=== PATIENT | male | born 1955 | race Caucasian/White ===

== ENCOUNTER 2017-03-13 12:15 | Emergency (ER) | payer BC, OTHER ==
[~2017-03-13] VITALS: Ht 182.9 cm; Wt 35.8 kg
[2017-03-13 13:36] LABS: Basophils # (auto) 0.1 uL; Basophils % (auto) 0.5 % (0.0-2.0); Eosinophils # (auto) 0.1 uL; Eosinophils % (auto) 0.4 % (0.0-7.0); Hematocrit 46.7 % (41.0-53.0); Hemoglobin 15.6 g/dL (13.5-17.5); Lymphocytes # (auto) 1.6 uL; Mean Corpuscular Hemoglobin 30.9 pg (28.0-32.0); Mean Corpuscular Hgb Conc. 33.3 g/dL (32.0-36.0); Mean Corpuscular Volume 92.9 fL (80.0-100.0); Mean Platelet Volume 7.5 fL (6.9-10.8); Monocytes # (auto) 1.3 uL; Monocytes % (auto) 8.1 % (0.0-12.0); Neutrophils # (auto) 13.3 uL; Platelet Count (auto) 407 10^3/uL (140-450); Red Cell Distribution Width 14.7 % (11.8-14.3); White Blood Cell 16.4 10^3/uL (4.4-10.8)
[2017-03-13 14:04] LABS: Albumin 3.6 g/dL (3.4-5.0); Alkaline Phosphatase 98 U/L (45-117); Anion Gap 9 (5-15); Aspartate Aminotransferase 10 U/L (15-37); BUN/Creatinine Ratio 18.7; Blood Urea Nitrogen 20 mg/dL (7-18); Calcium 9.6 mg/dL (8.5-10.1); Carbon Dioxide 26 mmol/L (21-32); Chloride 96 mmol/L (98-107); GFR African American 90 mL/min; GFR Non-African American 74 mL/min; Glucose 321 mg/dL (74-106); Potassium 4.7 mmol/L (3.5-5.1); Sodium 131 mmol/L (136-145); Total Protein 8.6 g/dL (6.4-8.2)
[2017-03-13 14:10] LABS: Urine Bilirubin Negative (Negative); Urine Blood Negative /uL (Negative); Urine Color Yellow (Yellow); Urine Glucose 4+ mg/dL (Normal); Urine Ketone 1+ (Negative); Urine Mucus FEW (None Seen); Urine Nitrite POSITIVE (Negative); Urine RBC None Seen /hpf (0 - 3); Urine Squamous Epithelial Cell FEW /hpf (<5); Urine Urobilinogen Normal (Negative)
[2017-03-13] MEDS ORDERED: CIPROFLOXACIN HCL 500 MG TAB PO ONE (14:45)
[2017-03-13] MEDS ORDERED: cefTRIAXone W LIDOCAINE 1 GM IM IM ONE (14:45)
[2017-03-13] MEDS ORDERED: LIDOCAINE 1% HCL (LOCAL ANESTH.) INJ 20ML MDV ONE (16:01)
[2017-03-13] MEDS ORDERED: cefTRIAXone SOD 1,000 MG VL ONE (16:02)
[2017-03-13] MEDS ORDERED: HYDROcodone-ACET 5/325MG TAB PO ONE (16:15)
[2017-03-13 16:17] VITALS: BP 136/71
== END 2017-03-13 16:31 | disposition home or self-care (01) ==
LOC: ER 12:15
DX: G04.90 Encephalitis and encephalomyelitis, unspecified (principal); N39.0 Urinary tract infection, site not specified; Z88.1 Allergy status to other antibiotic agents; Z88.0 Allergy status to penicillin; Z91.013 Allergy to seafood
CPT/HCPCS: 36415; 76870; 80053; 81001; 84484; 85025; 93005; 99285; J0696; J2001